=== PATIENT | female | born 2005 | race Caucasian/White ===

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

== ENCOUNTER 2025-01-23 16:09 | Outpatient (CLI) | payer BC, OTHER, SELFPAY ==
--- OUTSIDE RECORDS SUMMARY | 2024-12-29 09:00 | XMS_ITS | Encounter Summary ---
Author Organization [facility] Address [address] 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 Never 09/22/2024 Comments No Sex and Gender Information Value Date Recorded Sex Assigned at Not on file Legal Sex Female 10:09 AM EDT Gender Identity Not on file Sexual Orientation Not on file documented as of this encounter Last Filed Vital Signs Vital Sign Reading Time Taken Comments Blood Pressure 94/59 12/29/2024 9:04 AM EDT Pulse 116 12/29/2024 9:04 AM EDT Temperature 36.7 C (98 F) 12/29/2024 9:04 AM EDT Respiratory Rate - - Oxygen Saturation 97% 12/29/2024 9:04 AM EDT Inhaled Oxygen Concentration - - Weight 89.7 kg (197 lb 12 oz) 12/29/2024 9:04 AM EDT Height - - Body Mass Index 30.97 08/15/2024 3:39 PM EST documented in this encounter Miscellaneous Notes * Progress Notes - Ramon Morales MD - 12/29/2024 9:00 AM EDT Gynecology Progress Note Subjective 19 yo ( x 1) - here for evaluation of a spot on her genitals that was noted by anotherprovider - rec: BX - she is here for 2nd opinion. I know here well - H/O recently - had OB LAC repaired - bottle feeding. Has WWE w/ me in 09/2025 scheduled. NO issues otherwise - no pain, etc. Review of Systems Constitutional: Negative. HENT: Negative. Eyes: Negative. Respiratory: Negative. Cardiovascular: Negative. Gastrointestinal: Negative. Endocrine: Negative. Genitourinary: Negative. Musculoskeletal: Negative. Skin: Negative. Allergic/Immunologic: Negative. Neurological: Negative. Hematological: Negative. Psychiatric/Behavioral: Negative. All other systems reviewed and are negative. Objective Visit Vitals BP 94/59 Pulse (!) 116 Temp 36.7 ??C (98 ??F) Physical Exam Constitutional: Appearance: Normal appearance. Genitourinary: Bladder and urethral meatus normal. No lesions in the vagina. Right Labia: rash, lesions and skin changes. Right Labia: No tenderness. Left Labia: skin changes and rash. Left Labia: No tenderness or lesions. Vulva exam comments: Small varicosity at 7 o'clock - 0.5 x 0.5 cm - integral to prior OB Lac . Vaginal discharge present. No vaginal erythema, tenderness, bleeding, ulceration, granulation tissue or cuff induration. No vaginal prolapse present. No vaginal atrophy present. Pelvic exam was performed with patient in the lithotomy position. HENT: Head: Normocephalic and atraumatic. Right Ear: External ear normal. Left Ear: External ear normal. Pulmonary: Effort: Pulmonary effort is normal. Abdominal: General: Abdomen is flat. Palpations: Abdomen is soft. Musculoskeletal: General: Normal range of motion. Cervical back: Normal range of motion. Neurological: General: No focal deficit present. Mental Status: She is alert and oriented to person, place, and time. Skin: General: Skin is warm and dry. Psychiatric: Mood and Affect: Mood normal. Behavior: Behavior normal. Thought Content: Thought content normal. Judgment: Judgment normal. Vitals and nursing note reviewed. Exam conducted with a district manager postal service present. Assessment/Plan Assessment & Plan Varicose veins of vulva and perineum Yeast vaginitis Orders: fluconazole (Diflucan) 150 MG tablet; Take 1 tablet by mouth 1 time for 1 dose. Discussed B9 appearance to varicosity - OBS for now RX for yeast WWE 09/2025 Voices agreement + relief A total of 24 minutes was spent on this visit with at least more than 50% of the encounter spent incounseling and/or coordinating care including reviewing previous notes, counseling the patient on their identified issues as indicated in the note, discussing previous and/or ordered tests or imaging, prescribing/refilling medications, and documenting the findings in this note, as well as laying out a specific plan of action for this patient. documented in this encounter Plan of Treatment Upcoming Encounters Date Type Department Care Team (Late st Contact Info) Description 09/30/2025 9:45 AM EST Procedure Visit Obstetrics & Gynecology [address] [place] [address] Ramon Morales MD [address] [place] [address] documented as of this encounter Visit Diagnoses Diagnosis Varicose veins of vulva and perineum- Primary Yeast vaginitis documented in this encounter Additional Health Concerns Assessment Noted Time A fall risk assessment has been complete d for the patient 09/22/2024 11:34 AM EST A Body Mass Index follow-up plan has been documented for the patient 12/29/2024 9:18 AM EDT documented as of this encounter Care Teams Bending Machine Set Up Operator Relationship Specialty Start Date End Date Harmony Camejo PA [address] [place] [address] PCP - General 02/01/24 documented as of this encounter
--- OUTSIDE RECORDS SUMMARY | 2025-01-23 16:12 | XMS_ITS | Encounter Summary ---
Author Organization Healthcare Address [address] [place] [id number] Care Team Providers Care Livestock Farmers Name Role Phone Harmony Camejo Primary Care Provider Encounter Details Date Type Department Care Team (Late st Contact Info) Description 12/25/2024 Telephone Obstetrics & Gynecology [address] [place] [address] Ramon Morales MD [address] [place] [address] Social History Tobacco Use Types Packs/Day Years Used Date Smoking Tobacco: Never Smokeless Tobacco: Never Alcohol Use Standard Drinks/Week Comments Never 0 (1 standard drink = 0.6 oz pur e alcohol) PHQ-2 Answer Date Recorded Patient Health Questionnaire-2 Score 0 08/01/2024 [place] Depression Scale Answer Date Recorded [place] Depression Scale Total 10 09/22/2024 The thought of harming myself has occurred to me . Never 09/22/2024 Comments No Sex and Gender Information Value Date Recorded Sex Assigned at Not on file Legal Sex Female 10:09 AM EDT Gender Identity Not on file Sexual Orientation Not on file documented as of this encounter Miscellaneous Notes * Telephone Encounter - Yadira Webb - 12/26/2024 10:12 AM EDT scheduled appt per Work Q * Telephone Encounter - Terrie Almeida - 12/25/2024 4:02 PM EDT Clinical Concern/Question Reason for Call: Pt is returning call. Please call. Best contact number: [phone] (mobile) Optimal time of day to reach caller: OTHER: about 4:30 would be best. Additional comments/information from caller: Not Applicable Note: Please do not reply to this message. Follow-up communication and further actions as a result of this message need to be communicated with the patient directly, if the patient is not active onMyChart. If the patient is active on MyChart, they will receive notification of the communication/outcome via [employer]. documented in this encounter Plan of Treatment Upcoming Encounters Date Type Department Care Team (Late st Contact Info) Description 09/30/2025 9:45 AM EST Procedure Visit Obstetrics & Gynecology [address] [place] [address] Ramon Morales MD [address] [place] [address] documented as of this encounter Visit Diagnoses Not on filedocumented in this encounter Additional Health Concerns Assessment Noted Time A fall risk assessment has been complete d for the patient 09/22/2024 11:34 AM EST A Body Mass Index follow-up plan has been documented for the patient 09/22/2024 11:43 AM EST documented as of this encounter Care Teams Livestock Farmers Relationship Specialty Start Date End Date Harmony Camejo [place] [address] PCP - General 02/01/24 documented as of this encounter
--- OUTSIDE RECORDS SUMMARY | 2025-01-23 16:12 | XMS_ITS | Patient Health Record ---
Author Organization [facility] Address [address] [place] [address] Care Team Providers Care Investment Banking Manager Name Role Phone Unknown, PCP Primary Care Provider Unavailabl e Reason For Referral No Information Plan Of Treatment No Information Insurance Providers Payer Name Payer Address Payer Phone Subscriber Number Group Number Insured Name Patient Relationship to Insured Coverage Start Date Coverage End Date PROMPT PAY/Bill to Patient MIGUEL HOWELL Child - Insured has Financial Responsibility
--- OUTSIDE RECORDS SUMMARY | 2025-01-23 16:12 | XMS_ITS | Encounter Summary ---
Author Organization [facility] Address [address] [place] [address] Care Team Providers Care Application Development Intern Name Role Phone Harmony Camejo Primary Care Provider Encounter Details Date Type Department Care Team (Latest Contact Info) Description 12/29/2024 Travel Social History Tobacco Use Types Packs/Day Years Used Date Smoking Tobacco: Never Smokeless Tobacco: Never Alcohol Use Standard Drinks/Week Comments Never 0 (1 standard drink = 0.6 oz pur e alcohol) PHQ-2 Answer Date Recorded Patient Health Questionnaire-2 Score 0 08/01/2024 [place] Depression Scale Answer Date Recorded [place] Depression Scale Total 10 09/22/2024 The thought of harming myself has occurred to me . Never 09/22/2024 Comments No Sex and Gender Information Value Date Recorded Sex Assigned at Not on file Legal Sex Female 10:09 AM EDT Gender Identity Not on file Sexual Orientation Not on file documented as of this encounter Plan of Treatment Upcoming Encounters Date Type Department Care Team (Late st Contact Info) Description 09/30/2025 9:45 AM EST Procedure Visit Obstetrics & Gynecology [address] [place] [address] Ramon Morales MD [address] [place] [address] documented as of this encounter Visit Diagnoses Not on filedocumented in this encounter Additional Health Concerns Assessment Noted Time A fall risk assessment has been complete d for the patient 09/22/2024 11:34 AM EST A Body Mass Index follow-up plan has been documented for the patient 12/29/2024 9:18 AM EDT documented as of this encounter Care Teams Application Development Intern Relationship Specialty Start Date End Date Harmony Camejo PA [address] [place] [address] PCP - General 02/01/24 documented as of this encounter
--- OUTSIDE RECORDS SUMMARY | 2025-01-23 16:12 | XMS_ITS | Clinical Summary ---
Author Organization [facility] Address [address] [place] [address] Care Team Providers Care Procedure Manager Name Role Phone Harmony Camejo Primary Care Provider Allergies No known active allergies Medications Vit-Fe Fumarate-FA ( VITAMINS PO) Take by mouth. Ac tive sertraline (Zoloft) 50 MG tablet Take 1 tablet (50 mg) by mouth 1 (one) time each day. 90 tablet 3 5 09/22/19 26 Active ARIPiprazole (Abilify) 5 MG tablet TAKE 1 TABLET BY MOUTH AT BEDTIME NIGHTLY 5 Active norelgestromin- ethinyl estradiol (Ortho-Evra) 150-35 MCG/24HR Apply 1 PATCH topically ONCE WEEKLY FOR 3 WEEKS of a 4 WEEK CYCLE 5 Active Zurzuvae 25 MG capsule 5 Active fluconazole (Diflucan) 150 MG tabletIndicatio ns:Yeast vaginitis Take 1 tablet by mouth 1 time for 1 dose. 1 tablet 5 12/30/19 25 terconazole (Terazol 7) 0.4 % vaginal cream Insert 1 applicator into the vagina nightly for 7 days. 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); Yeast vaginitis 12/29/2024 Travel 12/25/2024 Telephone Obstetrics & Gynecology [address] [place] [address] [place] [address] Ramon Morales MD from Last 3 Months Immunizations Immunization Administration Dates Next Due Influenza, seasonal, injectable, preservative fr ee 04/17/2024 Rho (D) Immune Globulin 06/19/2024 Rsv, Bivalent, Protein Subun it Rsvpref, Diluent Reconstituted, 0.5mL, PF 07/18/2024 Tdap 06/19/2024 Family History Medical History Relation Name Comments Breast cancer Maternal Grandmother Relation Name Status Comments Maternal Grandmother Social History Tobacco Use Types Packs/Day Years Used Date Smoking Tobacco: Never Smokeless Tobacco: Never Tobacco Cessation:Counseling Given: Not Answered Alcohol Use Standard Drinks/Week Comments Never 0 (1 standard drink = 0.6 oz pur e alcohol) PHQ-2 Answer Date Recorded Patient Health Questionnaire-2 Score 0 08/01/2024 [place] Depression Scale Answer Date Recorded [place] Depression Scale Total 10 09/22/2024 The thought of harming myself has occurred to me . Never 09/22/2024 Comments No Sex and Gender Information Value Date Recorded Sex Assigned at Not on file Legal Sex Female 10:09 AM EDT Gender Identity Not on file Sexual Orientation Not on file Last Filed Vital Signs Vital Sign Reading Time Taken Comments Blood Pressure 94/59 12/29/2024 9:04 AM EDT Pulse 116 12/29/2024 9:04 AM EDT Temperature 36.7 C (98 F) 12/29/2024 9:04 AM EDT Respiratory Rate 20 07/04/2024 11:25 AM EST Oxygen Saturation 97% 12/29/2024 9:04 AM EDT Inhaled Oxygen Concentration - - Weight 89.7 kg (197 lb 12 oz) 12/29/2024 9:04 AM EDT Height 170.2 cm (5' 7 ) 08/15/2024 3:39 PM EST Body Mass Index 30.97 08/15/2024 3:39 PM EST Plan of Treatment Upcoming Encounters Date Type Department Care Team (Late st Contact Info) Description 09/30/2025 9:45 AM EST Procedure Visit Obstetrics & Gynecology [address] [place] [address] Ramon Morales MD [address] [place] [address] Health Maintenance Due Date Last Done Comments [facility]-Infant/Child/Adol SDOH Screenings 2005 Fluoride Varnish 03/09/2006 HPV Vaccines (2 - 2-dose series) 09/12/2018 03/12/2018 [facility]- SDOH Screenings 2023 [facility]-Adult SDOH Screenings 2023 [id number] Vaccine ( season) 2024 04/05/2021, 03/14/2021 [facility]-Chlamydia and Gonorrhea Screening 01/09/2025 01/10/2024, 01/10/2024 [facility]-Depression Screening 09/22/2025 09/22/2024, 07/14 [facility]-DTaP,Tdap,and Td Vaccines (8 - Td or Tdap) 06/19/2034 06/19/2024, 01/29/2017, 07/20/2009, Additional history exists [facility]-Zoster Vaccines (1 of 2) 2055 07/20/2009, 10/11/2006, 10/11/2006 [facility]-Hepatitis B Vaccines Completed 006, 2005, 2005 [facility]-Pneumococcal Vaccine: Pediatrics (0 to 5 Years) and At-Risk Patients (6 to 49 Years) Aged Out 07/12/2006, 01/15/2006, 2005, Additional history exists No longer eligible based on patient's age to complete this topic [facility]-HIB Vaccines Completed 01/10/2007, 12/2005, 2005, Additional history exists [facility]-Hepatitis A Vaccines Completed 01/10/2007, 06/15 [facility]-IPV Vaccines Completed 07/20/2009, , 2005, Additional history exists [facility]-Varicella Vaccines Completed 9, 10/11/2006, 10/11/2006 [facility]-HIV Screening Completed 01/10/2024 [facility]-Hepatitis C Screening Completed 01/10/2024 [facility]-Influenza Vaccine Completed 04/17/2024 , 04/28/2019, 08/14/2006 [facility]-RSV Vaccine: 60+ Years or Discontinued 07/18/2024 [facility]-Obesity Intervention Completed 025, 09/22/2024, 08/22/2024, Additional history exists [facility]-Rotavirus Vaccines Aged Out No lo nger eligible based on patient's age to complete this topic Procedures Procedure Name Priority Date/Time Associated Diagnosis Comments HEPATITIS C ANTIBODY W/REFLEX TO HCV QUANT PCR Routine 01/10/2024 11:02 AM EDT test positive HIV 1/2 ANTIBODY/ANTIGEN SCREEN WITH REFLEX TO HIV I/II DIFFERENTIATION Routine 01/10/2024 11:02 AM EDT test positive NEISSERIA GONORRHEA DNA BY PCR Routine 01/10/2024 11:02 AM EDT test positive from Last 3 Months or Most Recently Relevant to Health Maintenance Results * HIV 1 & 2 Antibody/Antigen Screen (01/10/2024 11:02 AM EDT) HIV 1 & 2 Antibody/Antigen Screen Non Reactive Non Reactive 01/10/2024 1:48 PM EDT [facility] Comment:Screening for HIV 1 & 2 antibodies, and P24 antigen is NONREACTIVE. No confirmatory testing is required. Blood Venous blood specimen / Unknown Venipuncture / Unknown 01/10/2024 11:02 AM EDT 01/10/2024 1:08 PM EDT us Ramon Morales MD LAB BLOOD ORDERABLES Final Resu lt [facility] [address] [place] [address] * Hepatitis C Antibody (01/10/2024 11:02 AM EDT) Hepatitis C Antibody Negative Negative 01/10/2024 1:48 PM EDT [facility] Blood Venous blood specimen / Unknown Venipuncture / Unknown 01/10/2024 11:02 AM EDT 01/10/2024 1:08 PM EDT us Ramon Morales MD LAB BLOOD ORDERABLES Final Resu lt Performing Organization Address [facility] Co de Phone Number [facility] [address] [place] [address] * Neisseria gonorrhea DNA by PCR (01/10/2024 11:02 AM EDT) Neisseria gonorrhea DNA PCR Result Not Detected Not Detected. 01/11/2024 12:37 PM EDT [facility] Urine Urine specimen / Unknown Non-blood Collection / Unknown 01/10/2024 11:02 AM EDT 01/10/2024 12:58 PM EDT Narrative [facility] - 01/11/2024 12:37 PM EDT This test is performed by the [employer] instrument for Real Time PCR C. trachomatis and N. gonorrhea. This test is FDA approved for use with endocervical, vaginal, and urine specimens. This test is used for clinical purposes. It should not be regarded as invesigational or for research. The [facility] Clinical Microbiology [facility] is certified under the Clinical Laboratory Improvement Amendments of 1988 (CLIA-88) as qualified to perform high complexity clinical laboratory testing. us Ramon Morales MD LAB MICROBIOLOGY - GENERAL ORDE RABLES Final Result Performing Organization Address City/[facility] de Phone Number [facility] [address] [place] [address] from Last 3 Months or Most Recently Relevant to Health Maintenance Insurance [employer] Care Teams Procedure Manager Relationship Specialty Start Date End Date Harmony Camejo PA [address] [place] [address] PCP - General 02/01/24
[2025-01-23 17:41] LABS: Free T4 (Free Thyroxine) 1.19 ng/dl (0.78-2.19)
[2025-01-23 17:55] LABS: Thyroid Stimulating Hormone 0.33 uIU/mL (0.465-4.68)
[2025-01-24 08:21] LABS: Triiodothyronine (T3) Total 141 ng/dL (71-180)
== END 2025-01-23 23:59 | disposition home or self-care (01) ==
LOC: LAB 16:11
PROVIDERS: PCP Internal Medicine; Visit Provider Internal Medicine
DX: E05.90 Thyrotoxicosis, unspecified without thyrotoxic crisis or storm (principal)
CPT/HCPCS: 36415; 84439; 84443; 84480